=== PATIENT | female | born 1990 | race African-American/Black ===

== ENCOUNTER 2017-10-27 09:08 | Emergency (ER) | payer OTHER ==
[2017-10-27] MEDS ORDERED: DEXAMETHASONE 10 MG/ML VIAL PO STA (10:12)
[2017-10-27] MEDS ORDERED: CHERRY SYRUP 10 ML UDC PO ONE (10:25)
--- NOTE | 2017-10-27 10:42 | ED Physician Documentation ---
PD HPI BACK INJURY - Stated complaint Stated Complaint: LOWER BACK PX - History obtained from History obtained from: Patient - History of Present Illness Location: Lower Type of injury: Other (sudden drop with heavy weight of clinent.) Where injury occurred: Work Timing - onset: How many weeks ago (2) Timing - duration: Weeks (2) Timing - details: Abrupt onset, Still present Quality: Pain, Spasm, Sharp Improved by: Rest, Ice, Immobilization Worsened by: Moving, Palpating Associated symptoms: No: Fever, Weakness, Numbness, Incontinent of urine, Unable to urinate, Hematuria, Incontinent of stool Similar symptoms before: Has not had sx before Recently seen: Not recently seen - Additional information Additional information: 27-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 She had immediate pain to her lower back and this has persisted now for 2 weeks. She is having some trouble sleeping and a lot of trouble getting comfortable. She has been using some ice to her back and pillows to position her body to sleep at night. Review of Systems Constitutional: denies: Fever, Chills, Myalgias Eyes: denies: Decreased vision Ears: denies: Ear pain Nose: denies: Congestion Throat: denies: Sore throat Cardiac: denies: Chest pain / pressure Respiratory: denies: Dyspnea, Cough GI: denies: Vomiting : denies: Dysuria Skin: denies: Rash Musculoskeletal: reports: Back pain. denies: Neck pain, Extremity swelling Neurologic: denies: Generalized weakness, Focal weakness, Numbness PD PAST MEDICAL HISTORY - Past Medical History Cardiovascular: None Respiratory: None Neuro: Headache/migraine Endocrine/Autoimmune: None GI: GERD, Other : None HEENT: None Psych: None Musculoskeletal: None Derm: None Other Past Medical History: IBS - Present Medications Home Medications: Ambulatory Orders Medication Instructions Recorded Confirmed Ibuprofen 800 mg PO Q8H PRN 10/06/16 10/27/16 Loratadine [Claritin] 10 mg PO ONCE PRN 10/06/16 10/27/16 Naproxen [Naprosyn] 500 mg PO BID 10/06/16 10/27/16 Norgestrel-Ethinyl Estradiol 0.3 mg PO DAILY 03/21/17 04/11/17 [Cryselle-28 Tablet] raNITIdine [Zantac] 150 mg PO BID PRN 10/06/16 10/27/16 Cyclobenzaprine [Flexeril] 10 mg PO TID PRN #20 tablet 10/27/17 HYDROcod/ACETAM 5/325 [Leslie 5/325] 1 - 2 ea PO Q6H PRN #15 tablet 10/27/17 - Allergies Allergies/Adverse Reactions: Allergies Allergy/AdvReac Type Severity Reaction Status Date / Time No Known Drug Allergies Allergy Verified 10/27/17 09:21 - Social History Does the pt smoke?: No Smoking Status: Never smoker - Immunizations Immunizations are current?: Yes PD ED PE NORMAL - Vitals Vital signs reviewed: Yes (hypertensive) - General General: Alert and oriented X 3, No acute distress, Well developed/nourished - HEENT HEENT: Atraumatic, PERRL, EOMI - Neck Neck: Supple, no meningeal sign - Respiratory Respiratory: No respiratory distress - Back Back: No CVA TTP, No spinal TTP, Other (There is paraspinous muscle tenderness to the left paraspinous muscles and they are densly in spasm. ) - Derm Derm: Normal color, Warm and dry, No rash - Extremities Extremities: No deformity, No edema - Neuro Neuro: Alert and oriented X 3, No motor deficit, No sensory deficit, Normal speech Eye Opening: Spontaneous Motor: Obeys Commands Verbal: Oriented GCS Score: 15 - Psych Psych: Normal mood, Normal affect Results - Vitals Vitals: Vital Signs - 24 hr 10/27/17 10/27/17 09:22 10:52 Heart Rate 91 85 Respiratory 14 14 Rate Blood Pressure 145/94 H 114/84 H O2 Saturation 100 Oxygen O2 Source Room air PD MEDICAL DECISION MAKING - ED course Complexity details: considered differential, d/w patient ED course: 27-year-old female with a work-related low back injury has acute muscle strain to the lumbar paraspinous muscles and has dense spasm in the muscles. She likely has a muscle spindle disruption and I have instructed her to use a range of motion against elastic resistance, ice and stretch and we have provided her with dexamethasone today 10 mg and we will place her on some pain medication and muscle relaxant for a short period. Departure - Departure Disposition: 01 Home, Self Care Clinical Impression: Acute lumbar myofascial strain Qualifiers: Encounter type: initial encounter Qualified Code(s): S39.012A - Strain of muscle, fascia and tendon of lower back, initial encounter Condition: Stable Instructions: ED Sprain Strain Lumbar Follow-Up: MARKELL BEYER [Primary Care Provider] - Prescriptions: Cyclobenzaprine [Flexeril] 10 mg PO TID PRN #20 tablet PRN Reason: Spasms HYDROcod/ACETAM 5/325 [Leslie 5/325] 1 - 2 ea PO Q6H PRN #15 tablet PRN Reason: Pain Forms: Activity restrictions Discharge Date/Time: 10/27/17 10:53
[2017-10-27 10:53] VITALS: BP 114/84
== END 2017-10-27 10:53 | disposition home or self-care (01) ==
LOC: ED 09:08
DX: S39.012A Strain of muscle, fascia and tendon of lower back, initial encounter (principal); X50.0XXA Overexertion from strenuous movement or load, initial encounter; Y93.F2 Activity, caregiving, lifting; Y92.239 Unspecified place in hospital as the place of occurrence of the external cause; Y99.0 Civilian activity done for income or pay
CPT/HCPCS: 99283; A9270

== ENCOUNTER 2018-03-03 13:01 | Outpatient (CLI) | payer OTHER ==
--- NOTE | 2018-03-17 14:00 | MRI Report ---
Procedure Date: 03/03/2018 Accession Number: [id number] / [id number] Procedure: MRI - Lumbar Spine W/O CPT Code: FULL RESULT: EXAM: MRI LUMBAR SPINE WITHOUT CONTRAST EXAM DATE: 03/03/2018 02:01 PM. CLINICAL HISTORY: LUMBAR RADICULOPATHY. COMPARISON: LUMBAR SPINE COMPLETE 10/29/2017 8:57 AM. TECHNIQUE: Multiplanar, multisequence T1-weighted and fluid-sensitive sequences of the lumbar spine from T12 to S1 without contrast. Other: None. FINDINGS: Spinal Canal: The conus terminates at L1-L2. The conus medullaris and cauda equina are unremarkable. Alignment: No scoliosis or spondylolisthesis. Bone Marrow: Five [id number] lumbar vertebral bodies are assumed. No gross fractures or bone lesions. No bone marrow replacement. Disk Levels/Facets: T12-L1: Unremarkable. L1-L2: Unremarkable. L2-L3: Unremarkable. L3-L4: Unremarkable. L4-L5: Unremarkable. L5-S1: Unremarkable. Musculature: Normal. No edema or fatty atrophy. Other: The partially visualized retroperitoneum is unremarkable. IMPRESSION: Unremarkable lumbar spine MRI. Comment: The following findings are so common in adults without low back pain that while we report their presence, they must be interpreted with caution and in the context of the clinical situation. (Reference Jarvik et al, Spine 2001) Prevalence of findings in patients without low back pain: Disk degeneration (any evidence): 92% Disk desiccation/T2 signal loss: 83% Disk height loss: 56% Disk bulge: 64% Disk protrusion: 32% Annular tear/high intensity zone: 38% RADIA
== END 2018-03-03 13:02 | disposition home or self-care (01) ==
LOC: DI 13:01
PROVIDERS: ATTEND Family Medicine
DX: M54.16 Radiculopathy, lumbar region (principal)
CPT/HCPCS: 72148